=== PATIENT | female | born 1955 | race African-American/Black ===

== ENCOUNTER 2021-12-28 14:47 | Emergency (ER) | payer MEDICARE, BC ==
[~2021-12-28] VITALS: Ht 175.3 cm; Wt 101.2 kg
[2021-12-28] MEDS ORDERED: LEVO125T8 PO (15:05)
[2021-12-28] MEDS ORDERED: BUPR300T52 PO (15:06)
[2021-12-28] MEDS ORDERED: PANT40TA49 PO (15:06)
--- NOTE | 2021-12-28 15:09 | NUR ---
Pt BIB [facility], reports chest pressure started about 30 min [employer], radiates to back; pt received 325mg ASA and x2 sprays NTG -- pain dropped from 1010 to 310 on arrival, GB=627. Pt c/o 07/28 CP currently w/left shoulder numbness. Pt denies SOB, dizziness, n/v, no other complaints, no distress noted.
[2021-12-28 15:15] LABS: HEMATOCRIT 33.6 % (31.2-41.9); MEAN CORPUSCULAR HEMOGLOBIN 25.8 uug (24.7-32.8); PLATELET COUNT (AUTO) 282 K/uL (179-408)
[2021-12-28 15:25] LABS: CARBON DIOXIDE 24 mmol/L (21-32); CHLORIDE 105 mmol/L (98-107); GLUCOSE 104 mg/dL (74-106); POTASSIUM 4.2 mmol/L (3.5-5.1); UREA NITROGEN, BLOOD 16 mg/dL (7-18)
--- NOTE | 2021-12-28 18:15 | NUR ---
Pt feeling fine, pain free. Removed IV intact, site okay, bandaged. Gave pt d/c instructions, pt verbalized understanding.
[2021-12-28 18:23] VITALS: BP 102/87
== END 2021-12-28 18:25 | disposition home or self-care (01) ==
LOC: ER 14:47
DX: R07.9 Chest pain, unspecified (principal); Z20.822 Contact with and (suspected) exposure to COVID-19; E07.9 Disorder of thyroid, unspecified; K21.9 Gastro-esophageal reflux disease without esophagitis; J45.909 Unspecified asthma, uncomplicated; R94.31 Abnormal electrocardiogram [ECG] [EKG]
CPT/HCPCS: 36415; 71045; 84484; 85025; 93005; A4663